=== PATIENT | female | born 1965 | race Hispanic/Latino ===

== ENCOUNTER → 2024-02-16 | Outpatient (REF) | payer OTHER | LOC: CT 13:41 | PROVIDERS: ATTEND Family Medicine | DX: H11.32 Conjunctival hemorrhage, left eye (principal); S00.83XA Contusion of other part of head, initial encounter; R51.9 Headache, unspecified; Z04.2 Encounter for examination and observation following work accident | CPT/HCPCS: 70480 ==

== ENCOUNTER → 2024-03-07 | Outpatient (REF) | payer OTHER | LOC: MRI 09:25 | PROVIDERS: ATTEND Family Medicine | DX: R42 Dizziness and giddiness (principal); S09.90XD Unspecified injury of head, subsequent encounter | CPT/HCPCS: 70551 ==